=== PATIENT | male | born 1990 | race Caucasian/White ===

== ENCOUNTER 2020-09-22 17:26 | Outpatient (CLI) | payer SELFPAY ==
[2020-09-22 20:25] LABS: BASOPHILS # (AUTO) 0.1 10^3/uL (0.0-0.1); BASOPHILS % (AUTO) 0.6 %; EOSINOPHILS # (AUTO) 0.2 10^3/uL (0.0-0.7); EOSINOPHILS % (AUTO) 2.1 %; HGB - HEMOGLOBIN 15.6 g/dL (14.0-18.0); LYMPHOCYTES # (AUTO) 2.1 10^3/uL (1.5-3.5); LYMPHOCYTES % (AUTO) 26.2 %; MEAN CORPUSCULAR HEMOGLOBIN 35.9 pg (27.0-31.0); MEAN CORPUSCULAR HGB CONC 36.5 g/dL (32.0-36.0); MEAN CORPUSCULAR VOLUME 98.2 fL (80.0-94.0); MEAN PLATELET VOLUME 8.2 fL (7.4-11.4); MONOCYTES # (AUTO) 0.7 10^3/uL (0.0-1.0); NEUTROPHILS # (AUTO) 4.9 10^3/uL (1.5-6.6); NEUTROPHILS % (AUTO) 61.6 %; PLT - PLATELET COUNT 326 10^3/uL (130-450); RED BLOOD COUNT 4.35 10^6/uL (4.70-6.10); RED CELL DISTRIBUTION WIDTH 14.3 % (12.0-15.0)
[2020-09-22 20:38] LABS: ALBUMIN 5.2 g/dL (3.2-5.5); ALBUMIN/GLOBULIN RATIO 1.7 (1.0-2.2); CALCIUM 9.5 mg/dL (8.5-10.3); CREATININE 0.8 mg/dL (0.6-1.2); TOTAL PROTEIN 8.3 g/dL (6.7-8.2)
== END 2020-09-22 23:59 | disposition home or self-care (01) ==
LOC: LAB.N 17:26
PROVIDERS: ATTEND Physician Assistant Medical
DX: R11.10 Vomiting, unspecified (principal); Z20.828 Contact with and (suspected) exposure to other viral communicable diseases
CPT/HCPCS: 36415; 80053; 83690; 84443; 85025; 87275; 87276

== ENCOUNTER 2020-09-24 10:00 | Outpatient (CLI) | payer SELFPAY ==
[2020-09-24 17:33] LABS: H. PYLORIS ANTIGEN STL NEGATIVE (Negative)
== END 2020-09-24 23:59 | disposition home or self-care (01) ==
LOC: LAB.R 10:00
PROVIDERS: ATTEND Physician Assistant Medical
DX: R11.10 Vomiting, unspecified (principal)
CPT/HCPCS: 87338

== ENCOUNTER 2020-11-07 13:45 | Outpatient (CLI) | payer OTHER ==
[2020-11-07 20:27] LABS: H. PYLORIS ANTIGEN STL NEGATIVE (Negative)
== END 2020-11-07 23:59 | disposition home or self-care (01) ==
LOC: LAB.R 13:45
PROVIDERS: ATTEND Physician Assistant
DX: R19.7 Diarrhea, unspecified (principal); K92.1 Melena; R53.83 Other fatigue; R10.13 Epigastric pain; K92.0 Hematemesis; Z72.89 Other problems related to lifestyle
CPT/HCPCS: 81599; 82274; 87045; 87046; 87177; 87209; 87338; 87427; 87493

== ENCOUNTER 2020-11-07 15:24 | Outpatient (CLI) | payer SELFPAY ==
[2020-11-07 18:31] LABS: BASOPHILS # (AUTO) 0.1 10^3/uL (0.0-0.1); BASOPHILS % (AUTO) 0.7 %; EOSINOPHILS # (AUTO) 0.2 10^3/uL (0.0-0.7); EOSINOPHILS % (AUTO) 1.6 %; HGB - HEMOGLOBIN 15.6 g/dL (14.0-18.0); LYMPHOCYTES # (AUTO) 2.2 10^3/uL (1.5-3.5); LYMPHOCYTES % (AUTO) 23.2 %; MEAN CORPUSCULAR HEMOGLOBIN 36.6 pg (27.0-31.0); MEAN CORPUSCULAR HGB CONC 36.2 g/dL (32.0-36.0); MEAN CORPUSCULAR VOLUME 101.2 fL (80.0-94.0); MEAN PLATELET VOLUME 9.1 fL (7.4-11.4); MONOCYTES # (AUTO) 0.7 10^3/uL (0.0-1.0); MONOCYTES % (AUTO) 7.6 %; NEUTROPHILS # (AUTO) 6.2 10^3/uL (1.5-6.6); NEUTROPHILS % (AUTO) 66.4 %; PLT - PLATELET COUNT 306 10^3/uL (130-450); RED BLOOD COUNT 4.26 10^6/uL (4.70-6.10); RED CELL DISTRIBUTION WIDTH 14.2 % (12.0-15.0); WHITE BLOOD COUNT 9.4 x10^3/uL (4.8-10.8)
[2020-11-07 21:51] LABS: ALBUMIN/GLOBULIN RATIO 1.7 (1.0-2.2); BILIRUBIN,TOTAL 0.6 mg/dL (0.2-1.0); CALCIUM 9.6 mg/dL (8.5-10.3); CREATININE 0.8 mg/dL (0.6-1.2)
== END 2020-11-07 15:25 | disposition home or self-care (01) ==
LOC: LAB.N 15:24
PROVIDERS: ATTEND Physician Assistant
DX: R19.7 Diarrhea, unspecified (principal); R10.13 Epigastric pain; K92.1 Melena; K92.0 Hematemesis; R53.83 Other fatigue; F10.10 Alcohol abuse, uncomplicated
CPT/HCPCS: 36415; 80053; 82150; 83690; 85025

== ENCOUNTER 2020-11-29 08:00 | Outpatient (CLI) | payer OTHER | END 2020-11-29 23:59 | disposition home or self-care (01) | LOC: LAB.R 08:00 | PROVIDERS: ATTEND Physician Assistant Medical | DX: R05 Cough (principal); Z20.822 Contact with and (suspected) exposure to COVID-19 | CPT/HCPCS: 87275; 87276 ==

== ENCOUNTER 2020-12-21 16:50 | Outpatient (CLI) | payer BC | END 2020-12-21 16:51 | disposition home or self-care (01) | LOC: COV 16:50 | PROVIDERS: ATTEND Surgery | DX: Z01.812 Encounter for preprocedural laboratory examination (principal); K21.9 Gastro-esophageal reflux disease without esophagitis; R10.9 Unspecified abdominal pain; R19.7 Diarrhea, unspecified; Z20.822 Contact with and (suspected) exposure to COVID-19 ==

== ENCOUNTER 2020-12-26 10:54 | Day surgery (SDC) | payer BC ==
[2020-12-26] MEDS ORDERED: LACTATED RINGERS 1,000 ML IV ONE ×2 (11:19→13:42)
--- NOTE | 2020-12-26 12:27 | ANESTHESIA ---
Pre-Anesthesia VS, & Labs - Diagnosis gerd, diarrhea - Procedure EGD, colonoscopy Vital Signs: Temp Pulse Resp BP Pulse Ox 36.1 C L 108 H 16 143/83 H 98 12/26/20 11:05 12/26/20 11:05 12/26/20 11:05 12/26/20 11:05 12/26/20 11:05 Height: 5 ft 6 in Weight (kg): 73.8 kg Body Mass Index: 26.2 BMI Classification: Overweight - NPO >8 hours Home Medications and Allergies Home Medications: Ambulatory Orders Loperamide [Imodium] 2 mg PO ONCE PRN 12/25/20 Losartan Potassium 25 mg PO 12/25/20 Omeprazole Magnesium 20 mg PO 12/25/20 Loperamide [Imodium] 2 mg PO ONCE PRN 12/25/20 Losartan Potassium 25 mg PO 12/25/20 Omeprazole Magnesium 20 mg PO 12/25/20 Allergies/Adverse Reactions: Allergies Allergy/AdvReac Type Severity Reaction Status Date / Time No Known Drug Allergies Allergy Verified 12/25/20 14:08 Anes History & Medical History - Medical History Cardiovascular: reports: Hypertension Pulmonary: reports: None Gastrointestinal: reports: GERD Urinary: reports: None Musculoskeletal: reports: None Endocrine/Autoimmune: reports: None Skin: reports: None Psychosocial: reports: Alcohol (daily) Exam General: Alert Dental: WNL Mouth Opening: Greater than 4 Fingerbreadths Neck Mobility: Normal Mallampati classification: II Thyromental Distance: greater than 6 cm Respiratory: Lungs clear Cardiovascular: Regular rate Plan Anesthesia Type: Total IV Consent for Procedure(s) Verified and Reviewed: Yes Code Status: Attempt Resuscitation ASA classification: 2-Mild systemic disease Is this case an emergency?: No
[2020-12-26] MEDS ORDERED: LIDOCAINE-MPF 2% 5 ML VIAL ONE (13:01)
[2020-12-26] MEDS ORDERED: PROPOFOL 500 MG/50 ML 500 MG/50 ML VIAL ONE (13:01)
[2020-12-26] MEDS ORDERED: MIDAZOLAM 2 MG/2 ML VIAL ONE (13:04)
--- NOTE | 2020-12-26 13:52 | ANESTHESIA POST OP EVALUATION ---
Anesthesia Post Eval - Post Anesthesia Eval Vitals: Last Vital Signs Temp 36.2 C L 12/26/20 13:42 Pulse 127 H 12/26/20 13:42 Resp 26 H 12/26/20 13:42 BP 140/102 H 12/26/20 13:42 Pulse Ox 93 12/26/20 13:42 CV Function Including HR & BP: positive: Stable Pain Control: positive: Satisfactory Nausea & Vomiting: positive: Negative Mental Status: positive: Baseline Respiratory Status: Airway Patent Hydration Status: Satisfactory Anesthesia Complications: positive: None
[2020-12-26 14:02] VITALS: BP 128/96
== END 2020-12-26 10:55 | disposition home or self-care (01) ==
LOC: SDS 10:54
PROVIDERS: ATTEND Surgery
PROC: 0DBE8ZX Excision of Large Intestine, Via Natural or Artificial Opening Endoscopic, Diagnostic (ICD-10-PCS; principal; 2020-12-26 12:00)
PROC: 0DB58ZX Excision of Esophagus, Via Natural or Artificial Opening Endoscopic, Diagnostic (ICD-10-PCS; 2020-12-26 12:00)
DX: K21.00 Gastro-esophageal reflux disease with esophagitis, without bleeding (principal); K29.50 Unspecified chronic gastritis without bleeding; K44.9 Diaphragmatic hernia without obstruction or gangrene; K52.9 Noninfective gastroenteritis and colitis, unspecified; K64.8 Other hemorrhoids; K62.89 Other specified diseases of anus and rectum; I10 Essential (primary) hypertension; E66.3 Overweight; Z68.26 Body mass index [BMI] 26.0-26.9, adult; Z72.89 Other problems related to lifestyle
CPT/HCPCS: 43239; 45380; J7120

== ENCOUNTER 2021-12-02 12:36 | Emergency (ER) | payer OTHER, BC ==
[2021-12-02] MEDS ORDERED: lidocaine 1% 20 ML MDV SUBQ ONE (12:46)
[2021-12-02] MEDS ORDERED: TETANUS/DIPHTHERIA/PERTUSSIS 0.5 ML SYRINGE IM ONE (12:50)
--- NOTE | 2021-12-02 12:50 | ED Physician Documentation ---
PD HPI UPPER EXT INJURY - Stated complaint Stated Complaint: R INDEX FINGER LAC - Chief complaint Chief Complaint: Laceration - History obtained from History obtained from: Patient (31-year-old gentleman who is not up-to-date on tetanus cut his right index finger with a knife at work just prior to arrival. No other injuries.) Review of Systems Constitutional: reports: Reviewed and negative Eyes: reports: Reviewed and negative Ears: reports: Reviewed and negative Nose: reports: Reviewed and negative Throat: reports: Reviewed and negative Cardiac: reports: Reviewed and negative PD PAST MEDICAL HISTORY - Present Medications Home Medications: Ambulatory Orders Medication Instructions Recorded Confirmed Loperamide [Imodium] 2 mg PO ONCE PRN 12/25/20 12/25/20 Losartan Potassium 25 mg PO 12/25/20 Omeprazole Magnesium 20 mg PO 12/25/20 - Allergies Allergies/Adverse Reactions: Allergies Allergy/AdvReac Type Severity Reaction Status Date / Time amoxicillin Allergy Unknown Verified 12/02/21 12:44 PD ED PE NORMAL - Vitals Vital signs reviewed: Yes - General General: Alert and oriented X 3, No acute distress - Extremities Extremities: Other (Focused examination of the right index finger demonstrates a jagged laceration through the pulp of the index finger with some loss of sensation especially on the radial side distal to that. Capillary refill is good.) - Neuro Neuro: Alert and oriented X 3, Normal speech Results - Vitals Vitals: Vital Signs - 24 hr 12/02/21 12/02/21 12:40 13:28 Temperature 36.2 C L 37.2 C Heart Rate 107 H 109 H Respiratory 18 18 Rate Blood Pressure 160/92 H 141/93 H O2 Saturation 96 97 Oxygen O2 Source Room air Procedures - Laceration (location) r INDEX FINGER Length in cm: 2 Wound type: Curved, Into subcut fat Anesthesia: Lidocaine 1% Wound preparation: Irrigated copiously NS Skin layer closure: Interrupted, Size #-0 - enter number (5-0), Sutures - enter # (6) Other: Patient tolerated well, No complications, Neurovascular intact, Tetanus booster given PD MEDICAL DECISION MAKING - ED course ED course: He has a laceration of the pulp of the right index finger, not jail out on the phalanx. This results in a significant digital nerve injury on the radial side and partial on the ulnar side. We discussed that this is too far distal for primary repair of the nerve, and sensation may return after significant delay or it may may remain numb there permanently. Departure - Departure Disposition: 01 Home, Self Care Clinical Impression: Digital nerve injury Laceration of finger of right hand Qualifiers: Encounter type: initial encounter Finger: index finger Damage to nail status: without damage Foreign body presence: without foreign body Qualified Code(s): S61.210A - Laceration without foreign body of right index finger without damage to nail, initial encounter Condition: Good Record reviewed to determine appropriate education?: Yes Instructions: ED Laceration Hand Comments: Come back for any signs of infection which would include: Redness, swelling, drainage, increased pain, or fevers. You can wash it soap and water. Keep it covered and moist with bacitracin ointment which is available over the counter; avoid neosporin. Follow-up with your physician in 10-14 days for suture removal. Forms: Activity restrictions
[2021-12-02 13:29] VITALS: BP 141/93
== END 2021-12-02 13:24 | disposition home or self-care (01) ==
LOC: ED 12:36
DX: S61.210A Laceration without foreign body of right index finger without damage to nail, initial encounter (principal); S64.490A Injury of digital nerve of right index finger, initial encounter; W26.0XXA Contact with knife, initial encounter; Y99.0 Civilian activity done for income or pay; Z23 Encounter for immunization
CPT/HCPCS: 1040M; 12001; 90471; 99283

== ENCOUNTER 2023-04-14 11:41 | Emergency (ER) | payer BC, OTHER ==
[2023-04-14] MEDS ORDERED: ONDANSETRON 4 MG/2 ML VIAL IVP STA (12:14)
[2023-04-14] MEDS ORDERED: SODIUM CHLORIDE 0.9% 1,000 ML IV STA (12:14)
[2023-04-14] MEDS ORDERED: PANTOPRAZOLE 40 MG VIAL IVP STA (12:14)
--- NOTE | 2023-04-14 12:17 | ED Physician Documentation ---
PD HPI ABD PAIN - Stated complaint Stated Complaint: BLOOD IN VOMIT - Chief complaint Chief Complaint: Abd Pain - History obtained from History obtained from: Patient - Additional information Additional information: 32-year-old gentleman with history of fairly heavy alcohol use presents with vomiting for a week that became blood-tinged today. Its associate with epigastric pain. He has a history of colitis and esophagitis. Had EGD about 2 years ago showing same. That showed: 1. Significant distal esophagitis and findings consistent with metaplastic changes at the GE junction with associated hiatal hernia. 2. No duodenitis 3. Gastritis/gastropathy 4. Gastritis chronic with metaplastic changes. There was no mention of varices. He drinks daily, less than he used to, currently about 5 drinks a day he says. Also uses nicotine and caffeine. No NSAIDs. PD PAST MEDICAL HISTORY - Past Medical History Cardiovascular: Hypertension GI: GI bleed - Past Surgical History Past Surgical History: No General: Cholecystectomy, Colonoscopy - Present Medications Home Medications: Ambulatory Orders Medication Instructions Recorded Confirmed LORazepam [Ativan] 1 mg PO TID PRN #12 tablet 04/14/23 Omeprazole 40 mg PO DAILY #30 cap 04/14/23 Ondansetron Odt [Zofran] 4 mg TL Q6H PRN #10 tablet 04/14/23 - Allergies Allergies/Adverse Reactions: Allergies Allergy/AdvReac Type Severity Reaction Status Date / Time amoxicillin Allergy Unknown Verified 12/02/21 12:44 - Social History Does the pt smoke?: Yes Smoking Status: Current every day smoker Does the pt drink ETOH?: Yes ETOH Use: Liquor Does the pt have substance abuse?: Yes Substance Use and Type: Marijuana - Immunizations Immunizations are current?: No - POLST Patient has POLST: No PD ED PE NORMAL - Vitals Vital signs reviewed: Yes - General General: Alert and oriented X 3, No acute distress - Cardiac Cardiac: RRR, No murmur - Respiratory Respiratory: No respiratory distress, Clear bilaterally - Abdomen Abdomen: Normal bowel sounds, Soft, Non tender - Derm Derm: Other (Multiple herrera on both forearms. 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.) - Neuro Neuro: Alert and oriented X 3, Normal speech Results - Vitals Vitals: Vital Signs - 24 hr 06/26/23 06/26/23 06/26/23 11:45 12:39 13:41 Temperature 36.7 C Heart Rate 85 84 81 Respiratory 15 14 15 Rate Blood Pressure 155/98 H 128/88 H 133/90 H O2 Saturation 99 99 99 Oxygen O2 Source Room air - Labs Labs: Laboratory Tests 04/14/23 04/14/23 04/14/23 12:25 12:25 12:25 WBC 4.4 L RBC 4.24 L Hgb 14.7 Hct 39.8 L MCV 93.9 MCH 34.7 H MCHC 36.9 H RDW 13.5 Plt Count 162 MPV 8.2 Neut # (Auto) 2.8 Lymph # (Auto) 1.2 L [place] # (Auto) 0.4 Eos # (Auto) 0.0 Baso # (Auto) 0.1 Absolute Nucleated RBC 0.00 Nucleated RBC % 0.0 PT 12.7 H INR 1.2 Sodium 140 Potassium 3.4 L Chloride 102 Carbon Dioxide 27 Anion Gap 11.0 BUN 7 Creatinine 0.8 Estimated GFR (MDRD) 114 Glucose 101 H Calcium 9.0 Total Bilirubin 1.0 AST 45 H ALT 20 Alkaline Phosphatase 48 Total Protein 7.6 Albumin 4.3 Globulin 3.3 Albumin/Globulin Ratio 1.3 Lipase 36 Ethyl Alcohol 270.4 PD Medical Decision Making - ED course ED course: 32-year-old gentleman presents with epigastric pain and vomiting with small amount of blood in the vomit. CBC showing mild lymphopenia. INR normal. Chemistry panel notable for mild hypokalemia and modest elevation of AST only. Blood alcohol level very elevated at 270, noted that he drove here. I discussed with him his alcohol level and he seems surprised, he had plan to go to work later. I discussed with him that driving on the way here would have been a DUI. He wanted some pain medication, I discussed with him that I would not be willing to give him any prescriptions or dispense any pain medication now without a sober supportive adult here that would help him through the process. He also wanted to do outpatient rehab and discussed with him that [facility] options would be a good option. His girlfriend did arrive and was unwilling to hold pain medications for him. That said after some discussion he was amenable to quitting drinking with some lorazepam and medications for his stomach. Departure - Departure Disposition: 01 Home, Self Care Clinical Impression: Alcoholic gastritis Qualifiers: Chronicity: acute Gastritis bleeding: with bleeding Qualified Code(s): K29.21 - Alcoholic gastritis with bleeding Alcohol intoxication Qualifiers: Complication of substance-induced condition: uncomplicated Qualified Code(s): F10.920 - Alcohol use, unspecified with intoxication, uncomplicated Condition: Good Record reviewed to determine appropriate education?: Yes Instructions: ED Alcohol Intoxication, ED Gastritis Prescriptions: LORazepam [Ativan] 1 mg PO TID PRN #12 tablet PRN Reason: Anxiety Omeprazole 40 mg PO DAILY #30 cap Ondansetron Odt [Zofran] 4 mg TL Q6H PRN #10 tablet PRN Reason: Nausea / Vomiting Comments: You were seen today for stomach pain and vomiting that is likely due to alcoholic gastritis. Your labs were notable for liver damage and a blood alcohol of 270, noting that 80 is the legal limit for driving and as such you were driving drunk on the way here. I sent your prescription electronically to [facility] in [place]. If you are going to take the medication for withdrawal it is imperative you do not drink or drive. You should not drive today either for the above reasons. You can go to their website at [email or web address] or call their office at [phone] If you were to change your mind about inpatient treatment, an option would be: [facility] Address: [address] [place] [id number]
[2023-04-14 12:34] LABS: BASOPHILS # (AUTO) 0.1 10^3/uL (0.0-0.1); BASOPHILS % (AUTO) 1.1 %; EOSINOPHILS % (AUTO) 0.5 %; HCT - HEMATOCRIT 39.8 % (42.0-52.0); HGB - HEMOGLOBIN 14.7 g/dL (14.0-18.0); LYMPHOCYTES # (AUTO) 1.2 10^3/uL (1.5-3.5); LYMPHOCYTES % (AUTO) 26.2 %; MEAN CORPUSCULAR HEMOGLOBIN 34.7 pg (27.0-31.0); MEAN CORPUSCULAR HGB CONC 36.9 g/dL (32.0-36.0); MEAN CORPUSCULAR VOLUME 93.9 fL (80.0-94.0); MEAN PLATELET VOLUME 8.2 fL (7.4-11.4); MONOCYTES # (AUTO) 0.4 10^3/uL (0.0-1.0); NEUTROPHILS # (AUTO) 2.8 10^3/uL (1.5-6.6); NEUTROPHILS % (AUTO) 63.2 %; PLT - PLATELET COUNT 162 10^3/uL (130-450); RED BLOOD COUNT 4.24 10^6/uL (4.70-6.10); RED CELL DISTRIBUTION WIDTH 13.5 % (12.0-15.0); WHITE BLOOD COUNT 4.4 x10^3/uL (4.8-10.8)
[2023-04-14 12:39] LABS: INR 1.2 (0.8-1.2); PT - PROTHROMBIN TIME 12.7 secs (9.9-12.6)
[2023-04-14 12:48] LABS: ALBUMIN 4.3 g/dL (3.2-5.5); ALBUMIN/GLOBULIN RATIO 1.3 (1.0-2.2); CREATININE 0.8 mg/dL (0.6-1.2); ETOH - ETHANOL 270.4 mg/dL; POTASSIUM 3.4 mmol/L (3.5-5.0); TOTAL PROTEIN 7.6 g/dL (6.7-8.2)
[2023-04-14 14:21] VITALS: BP 145/81
== END 2023-04-14 14:16 | disposition home or self-care (01) ==
LOC: ED 11:41
DX: K29.21 Alcoholic gastritis with bleeding (principal); I10 Essential (primary) hypertension; F17.200 Nicotine dependence, unspecified, uncomplicated
CPT/HCPCS: 36415; 80053; 80320; 83690; 85025; 85610; 96361; 96374; 99283